=== PATIENT | female | born 1970 | race Two or more races ===

== ENCOUNTER → 2016-11-11 | Outpatient (CLI) | payer MEDICAID ==
--- NOTE | 2016-11-17 10:40 | CPEEG ---
[f rep st] ELECTROENCEPHALOGRAM A 4-HOUR VIDEO EEG. DATE OF STUDY: 11/11/2016 DATE OF INTREPRETATION: 11/17/2016. INTERPRETATION: This 4-hour video EEG recording is abnormal due to the presence of generalized atypical spike and wave discharges and generalized polyspike and wave discharges present during the recording. 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 In addition, there was a mild degree of diffuse nonspecific slowing in the background activity. These findings would be consistent with a mild diffuse disturbance of cerebral function. During the video EEG monitoring session, the patient did not have any clinical events or recorded seizures. REPORT: This 4-hour video EEG contains 9 Hz alpha activity over the posterior head regions. In addition, there was a mild degree of diffuse theta slowing in the range of 5-6 Hz present in the background activity. The primary feature of this study was the presence of generalized atypical spike and wave discharges and generalized polyspike and wave discharges present at rest. There was additional activation with photic stimulation at 25 Hz and with hyperventilation. These discharges were irregular in morphology and 2-4 Hz in frequency. The patient became drowsy and fell into sustained sleep during the study. There was continued activation of generalized spike and wave discharges during drowsiness and sleep. During the video EEG monitoring session, the patient did not have any clinical events or recorded seizures. /[id number]/MODL MTDD
== END ==
LOC: FCPNEURO 08:28
PROVIDERS: ATTEND Psychiatry & Neurology Neurology
DX: R94.01 Abnormal electroencephalogram [EEG] (principal); G40.909 Epilepsy, unspecified, not intractable, without status epilepticus

== ENCOUNTER → 2016-11-16 | Outpatient (CLI) | payer MEDICAID | LOC: FIMAGING 12:07 | PROVIDERS: ATTEND Psychiatry & Neurology Neurology | DX: G40.909 Epilepsy, unspecified, not intractable, without status epilepticus (principal); M50.30 Other cervical disc degeneration, unspecified cervical region; R93.7 Abnormal findings on diagnostic imaging of other parts of musculoskeletal system ==